=== PATIENT | female | born 1945 | race Caucasian/White ===

== ENCOUNTER → 2017-01-21 | Outpatient (CLI) | payer MEDICARE, OTHER ==
[~2017-01-21] MED LIST: ASPIRIN81 M1 PO; ASPIRIN81 MG PO; CALCIUM CARBON600 M1 PO; CENTRUM SILVER1 EAC2 PO; HYDROCHLOROTHIA25 MG PO; LEVOTHYROXINE50 MCG PO; MULTI VITAMIN1 EACH PO; MULTIPLE VITAMI1 T12 PO; NORCO 7.5-3251 EACH PO; PROAIR HFA8.5 GM IH; PROAIR RESPICL90 MCG; SIMVASTATIN40 MG PO; SPIRONOLAC1 TAB 25/2 PO; VITAMIN D400 UNI1 PO; ZOCOR PO
--- NOTE | ~2017-01-21 | MY11 ---
[facility] A Service of [facility] RADIOLOGY TEXT RESULTS PATIENT: MAYTE BUITRAGO LOCATION: [facility] : 43 UNIT #: [id number] AGE: [address]: Blu Miranda MD SEX: F ORDER DR: [id number] [address] [id number] O MR#: [id number] Acc #: [id number] NAME: MAYTE BUITRAGO : 1945 SEX: F STUDY DATE/TIME: 01/21/2017 14:24 UNIT: [facility] ROOM: STUDY DESCRIPTION: MY Mammogram Screening Dig Jacobo Attending Physician: Blu Miranda M.D. Referring Physician: Blu Miranda M.D. Ordering Physician: Blu Miranda M.D. Primary Care Physician: Renee Vaughn M.D. MEDICAL IMAGING REPORT This report is preliminary unless electronic signature is present. EXAM Digital screening mammogram, 01/21/2017, [facility]. HISTORY 71-year-old woman. No risk elevation. Annual screen. COMPARISON Mammograms date to 11/23/2005 with most recent 12/06/2015. FINDINGS Digital imaging of each breast was completed utilizing a two-view examination of each breast in craniocaudal and mediolateral-oblique projections. Review and interpretation of digital mammograms include a second review in conjunction with FDA-approved CAD device. There is a normal parenchymal presentation bilaterally consistent with the patient's age. There are no breast masses imaged and no parenchymal asymmetry is visualized. There are no suspicious microcalcifications and I see no focal architectural disturbance. IMPRESSION Negative screening digital mammogram. One-year followup recommended. Patients over the age of 40 are entered into a reminder system with target due date for the next mammogram. A result letter will also be sent to the patient. BIRADS: 1 Negative. Dictated by... Huy Anthony M.D. [facility] A Service of [facility] RADIOLOGY TEXT RESULTS PATIENT: MAYTE BUITRAGO LOCATION: [facility] : 43 UNIT #: [id number] AGE: [address]: Blu Miranda MD SEX: F ORDER DR: THIS IS AN ELECTRONICALLY VERIFIED REPORT Huy Anthony M.D. at 01/22/2017 8:58 AM Kamari TD: 01/22/2017 08:08 JOB #: [id number] MEDICAL IMAGING REPORT Page 1 of 1
== END | disposition home or self-care (01) ==
LOC: SMAM 13:46
DX: Z12.31 Encounter for screening mammogram for malignant neoplasm of breast (principal)
CPT/HCPCS: G0202